=== PATIENT | female | born 1980 | race Caucasian/White ===

== ENCOUNTER 2018-08-14 08:29 | Day surgery (SDC) | payer OTHER ==
[2018-08-11 11:50] VITALS: BMI 26.4
[2018-08-14] MEDS ORDERED: DESFLURANE GAS 240 ML BOTTLE IH ONE (08:56)
[2018-08-14] MEDS ORDERED: PROPOFOL 20 ML ONE ×3 (08:59)
[2018-08-14] MEDS ORDERED: ePHEDrine SULFATE 50 MG/1 ML AMPULE ONE (08:59)
[2018-08-14] MEDS ORDERED: MIDAZOLAM HCL 2 MG/2 ML SINGLE DOSE VIAL ONE (09:00)
[2018-08-14] MEDS ORDERED: SUCCINYLCHOLINE CHLORIDE 200 MG/10 ML VIAL ONE (09:00)
[2018-08-14] MEDS ORDERED: oxyCODONE HCL 5 MG TABLET PO PRN (10:43)
[2018-08-14] MEDS ORDERED: ONDANSETRON 4 MG/2 ML VIAL IVPUSH PRN (10:43)
[2018-08-14] MEDS ORDERED: LACTATED RINGERS SOLUTION 1,000 ML IV SCH (10:45)
[2018-08-14 13:03] VITALS: TEMP 98.3
[2018-08-14 13:42] VITALS: BP 131/75; PULSE 70
--- NOTE | 2018-08-17 13:12 | OP ---
DATE OF OPERATION: DATE OF DICTATION: 08/16/2018 PREOPERATIVE DIAGNOSIS: Abnormal uterine bleeding, uterine polyp. POSTOPERATIVE DIAGNOSIS: Abnormal uterine bleeding, uterine polyp. PROCEDURE: Operative hysteroscopy, polypectomy, dilation and curettage. ANESTHESIA: General endotracheal anesthesia. ESTIMATED BLOOD LOSS: Minimal. IV FLUIDS: 800 mL saline. FLUID DEFICIT: 1100 mL. URINE OUTPUT: 25 mL. COMPLICATIONS: None. SPECIMEN: Uterine polyp, endometrial curettings. FINDINGS: Small anteverted uterus. No adnexal masses palpated bilaterally. On hysteroscopy, a 1.5-cm uterine polyp was noted at the left fundus with a broad base. Tubal ostia visualized bilaterally. PROCEDURE: This is a 38-year-old with abnormal uterine bleeding, endometrial polyp seen on ultrasound. Risks, benefits, alternatives discussed with the patient at length and informed consent was obtained. The patient was taken to the operating room. General anesthesia was obtained without difficulty. She was prepped and draped in the usual fashion in lithotomy position using [place] stirrups. Exam under anesthesia as stated above. A speculum was placed inside the vagina. The anterior lip of the cervix was grasped with a single-tooth tenaculum. The cervix was gently dilated, to accommodate the operative hysteroscope, using Hegar dilators. The hysteroscope was introduced in the uterine fundus. Both ostia were visualized at the completion of the surgery. As stated, a 1.5-cm left wall towards the fundus polyp was noted with a broad base. The polyp was removed using a combination of operative scissors, an operative grasper, a polyp forceps. Removal of the polyp was confirmed and the hysteroscope was again reintroduced. A gentle curettage was done over the area of the polyp to ensure that there was no polyp remaining. The hysteroscope was removed and tissue was obtained. All instruments were then removed from the vagina. Hemostasis was achieved. The patient was awakened and taken to the recovery room in stable condition. Dr. Rachael Aguilar dictating for MD TERESA Gagnon M.D. KAMERON/[id number]
--- NOTE | 2018-08-18 14:45 | PATH ---
Surgical Pathology Report Patient Name: LUNA MENDEZ [facility]. Rec. #: [id number] /Age/Gender: 1980 (Age: 38) / F Account: [id number] Location: [facility] Taken: 08/14/2018 Received: 08/14/2018 Reported: 08/18/2018 Physicians: Petr Beckman M.D. Specimen(s) Received UTERINE POLYPS Clinical History Uterine polyps Final Diagnosis UTERINE POLYPS, HYSTEROSCOPIC POLYPECTOMY: POLYPOID FRAGMENTS OF SECRETORY ENDOMETRIUM. Electronically Signed Afsaneh Jarquin M.D. Gross Description Received in formalin labeled "uterine polyps," is a 2.0 x 1.9 x 0.3 cm aggregate of hadley, irregular to polypoid soft tissue fragments. The formalin is filtered and the specimen is entirely submitted in one cassette. /08/15/2018 [facility]08/15/2018
== END 2018-08-14 13:30 | disposition home or self-care (01) ==
LOC: FASU 08:29
PROVIDERS: ATTEND Obstetrics & Gynecology Reproductive Endocrinology
PROC: 0UDB8ZX Extraction of Endometrium, Via Natural or Artificial Opening Endoscopic, Diagnostic (ICD-10-PCS; 2018-08-14)
PROC: 0UB98ZX Excision of Uterus, Via Natural or Artificial Opening Endoscopic, Diagnostic (ICD-10-PCS; principal; 2018-08-14 10:00)
DX: N84.0 Polyp of corpus uteri (principal); N93.9 Abnormal uterine and vaginal bleeding, unspecified
CPT/HCPCS: 84703; 88305-TC; 94760